=== PATIENT | male | born 1985 | race Two or more races ===

== ENCOUNTER 2023-04-17 13:15 | Emergency (ER) | payer OTHER ==
[~2023-04-17] VITALS: Ht 198.1 cm; Wt 109.9 kg
[2023-04-17] MEDS: LIDOCAINE 1% HCL (LOCAL ANESTH.) INJ 20ML MDV IJ ONE (14:36)
[2023-04-17 14:44] VITALS: BP 143/82; PULSE 90; RESP 18; TEMP 98.2; O2SAT 95
[2023-04-17] MEDS ORDERED: CEPH500C PO (15:05)
[2023-04-17] MEDS ORDERED: IBUP-1456 PO (15:05)
== END 2023-04-17 16:03 | disposition home or self-care (01) ==
LOC: ER 13:15
DX: S81.011A Laceration without foreign body, right knee, initial encounter (principal); V49.9XXA Car occupant (driver) (passenger) injured in unspecified traffic accident, initial encounter; Y93.89 Activity, other specified; Y92.89 Other specified places as the place of occurrence of the external cause; Y99.8 Other external cause status
CPT/HCPCS: 12004; 73560